=== PATIENT | female | born 1945 | race Caucasian/White ===

== ENCOUNTER 2025-10-03 15:54 | Inpatient (IN) | payer MEDICARE, OTHER ==
[~2025-10-03] VITALS: Ht 157.5 cm; Wt 100.5 kg
--- NOTE | 2025-10-03 16:07 | ECG ---
[facility] Test Date: 2025-10-03 Test Time: 16:02:48 Pat Name: DOC RUIZ Department: ED Room: 0236 Gender: F Client Account Assistant: REINA : 1945 Requested By: TAMEKA SALEEM Order Number: [id number] Reading MD: Jeffry Roa Measurements Intervals Bryan Rate: 101 P: 77 NM: 156 QRS: -26 QRSD: 85 T: 58 QT: 339 QTc: 440 Interpretive Statements Sinus tachycardia Probable left atrial enlargement Borderline left axis deviation Baseline wander in lead(s) V6 Electronically Signed On 10-07-2025 19:14:11 PST by Jeffry Roa Please click the below link to view image of tracing.
[2025-10-03 16:30] VITALS: PULSE 97; RESP 20; O2SAT 92
[2025-10-03] MEDS: LACTATED RINGER'S 1,500 ML IV ONE (17:10)
[2025-10-03] MEDS: ACETAMINOPHEN 500 MG TAB or CAP PO ONE (17:10)
[2025-10-03] MEDS: CEFEPIME 1GM/50ML 50 ML IV ONE (17:10)
--- NOTE | 2025-10-03 17:37 | ED.PDOC ---
HPI (NEURO) HPI Comments 80 y/o F, presents to the ED for CC of generalized weakness. Patient states, she has been experiencing symptoms of generalized weakness with associated malaise x1week. Patient reports, weakness has worsened since commencement of symptoms, now being unable to ambulate and having frequent falls. Patient further relays, symptoms of poor appetite. At this time patient c/o bilateral leg pain. Patient denies fever, urinary symptoms, nausea, vomiting, or head injury. Chief Complaint: General Weakness Time Seen by MD: 17:20 Mode of Arrival: EMS Severity: Moderate Headache Severity: None Timing: Weeks Duration: Since onset Prehospital treatment: None Weakness Location: Generalized Circumstances: Spontaneous Symptoms: Weakness Before: Normal During: Awake After: Normal Mentation History of: None Modifying factors: Nothing Associated Signs and Symptoms: Weakness Past Medical History PAST MEDICAL HISTORY: Denies Surgical History: Denies all surgeries BOARD WORKER History: Denies all BOARD WORKER Hx Family History Family History: Unknown Social History Smoker: Non-Smoker Alcohol: Denies ETOH Use Drugs: Denies Drug Use Lives In: Home Constitutional: reports: fever, malaise, weakness; denies: chills, diaphoresis, fatigue, sweats, others EENTM: denies: blurred vision, double vision, ear bleeding, ear discharge, ear drainage, ear pain, ear ringing, eye pain, eye redness, hearing loss, mouth pain, mouth swelling, nasal discharge, nose bleeding, nose congestion, nose pain, photophobia, tearing, throat pain, throat swelling, voice changes, others Respiratory: denies: cough, hemoptysis, orthopnea, SOB at rest, shortness of breath, SOB with excertion, stridor, wheezing, others Cardiovascular: denies: chest pain, dizzy spells, diaphoresis, Dyspnea on exertion, edema, irregular heart beat, left arm pain, lightheadedness, palpitations, PND, syncope, others Gastrointestinal: denies: abdomen distended, abdominal pain, blood streaked bowels, constipated, diarrhea, dysphagia, difficulty swallowing, hematemesis, melena, nausea, poor appetite, poor fluid intake, rectal bleeding, rectal pain, vomiting, others Genitourinary: denies: abnormal vagina bleeding, burning, dyspareunia, dysuria, flank pain, frequency, hematuria, incontinence, pain, , vagina dis charge, urgency, others Neurological: denies: dizziness, fainting, headache, left sided numbness, left sided weakness, numbness, paresthesia, pre-existing deficit, right sided numbness, right sided weakness, seizure, speech problems, tingling, tremors, weakness, others Musculoskeletal: denies: back pain, gout, joint pain, joint swelling, muscle pain, muscle stiffness, neck pain, others Integumetry: denies: bruises, change in color, change in hair/nails, dryness, laceration, lesions, lumps, rash, wounds, others Allergic/Immunocompromised: denies: Difficulty Healing, Frequent Infections, Hives, Itching, others Hematologic/Lymphatic: denies: anemia, blood clots, easy bleeding, easy bruising, swollen glands, others Endocrine: denies: excessive hunger, excessive sweating, excessive thirst, excessive urination, flushing, intolerance to cold, intolerance to heat, unexplained weight gain, unexplained weight loss, others Psychiatric: denies: anxiety, bipolar disorder, depression, hopeless, panic disorder, schizophrenia, sleepless, suicidal, others All Other Systems: Reviewed and Negative Physical Exam General Appearance: No Apparent Distress, Normal, Other (febrile) HEENT: Normal ENT Inspection, Pharynx Normal Neck: Full Range of Motion, Non-Tender, Normal, Normal Inspection Respiratory: Chest Non-Tender, Lungs Clear, No Accessory Muscle Use, No Respiratory Distress, Normal Breath Sounds Cardiovascular: No Edema, No Murmur, No Gallop, Normal Peripheral Pulses, Tachycardia Breast Exam: Deferred Gastrointestinal: No Organomegaly, Non Tender, No Pulsatile Mass, Normal Bowel Sounds, Soft Genitalia: Deferred Pelvic: Deferred Rectal: Deferred Extremities: No calf tenderness, Normal capillary refill, Normal inspection, Normal range of motion, Non-tender, No pedal edema Musculoskeletal : Apperance: Normal Neurologic: Alert, pulp piler II-XII nml as Tested, No Motor Deficits, Normal Affect, Normal Mood, No Sensory Deficits Cerebellar Function: Normal Reflexes: Normal Skin: Dry, Normal Color, Warm Lymphatic: No Adenopathy Was a procedure done? Was a procedure done?: No Differential Diagnosis (SZ) General Weakness: Anemia, Dehydration, Electrolyte imbalance, Hypoglycemia, Hypotension X-Ray, Labs, Meds, VS Vital Signs Date Time Temp Pulse Resp B/P (MAP) Pulse Ox O2 Delivery O2 Flow Rate FiO2 10/03/25 17:10 100.7 10/03/25 16:30 97 20 92 Nasal Cannula* 1 24 10/03/25 16:30 100.7 93 20 124/76 (92) 95 100.7 10/03/25 16:13 100.7 100 19 156/80 99 100.7 10/03/25 16:02 101 Lab Test 10/03/25 16:58 10/03/25 16:31 Range/Units White Blood Count 9.3 4.4-10.8 10^3/uL Red Blood Count 4.50 4.0-5.20 10^6/uL Hemoglobin 13.8 12.2-16.2 g/dL Hematocrit 41.9 36.0-46.0 % Mean Corpuscular Volume 93.1 80.0-100.0 fL Mean Corpuscular Hemoglobin 30.7 28.0-32.0 pg Mean Corpuscular Hemoglobin Concent 32.9 32.0-36.0 g/dL Red Cell Distribution Width 14.4 H 11.8-14.3 % Platelet Count 266 140-450 10^3/uL Mean Platelet Volume 8.5 6.9-10.8 fL Neutrophils (%) (Auto) 89.4 H 37.0-80.0 % Lymphocytes (%) (Auto) 3.6 L 10.0-50.0 % Monocytes (%) (Auto) 6.5 0.0-12.0 % Eosinophils (%) (Auto) 0.0 0.0-7.0 % Basophils (%) (Auto) 0.5 0.0-2.0 % Neutrophils # (Auto) 8.3 1.6-8.6 10 ^3/uL Lymphocytes # (Auto) 0.3 L 0.4-5.4 10 ^3/uL Monocytes # (Auto) 0.6 0-1.3 10 ^3/uL Eosinophils # (Auto) 0 0-0.8 10 ^3/uL Basophils # (Auto) 0.1 0-0.2 10 ^3/uL Nucleated Red Blood Cells 0.1 % Prothrombin Time 11.7 9.3-11.8 sec Prothrombin Time INR 1.12 0.9-1.15 Activated Partial Thromboplast Time 29.6 24.5-34.5 SEC Sodium Level 135 L 136-145 mmol/L Potassium Level 4.7 3.5-5.1 mmol/L Chloride Level 100 98-107 mmol/L Carbon Dioxide Level 26 20-31 mmol/L Anion Gap 9 5-15 Blood Urea Nitrogen 26 H 9-23 mg/dL Creatinine 1.69 H 0.550-1.02 mg/dL Glomerular Filtration Rate Calc 31 >90 mL/min BUN/Creatinine Ratio 15.4 10.0-20.0 Serum Glucose 181 H 74-106 mg/dL Lactic Acid Level 1.1 0.4-2.0 mmol/L Calcium Level 8.9 8.7-10.4 mg/dL Total Bilirubin 0.3 0.2-1.0 mg/dL Aspartate Amino Transferase (AST) 39 13-40 U/L Alanine Aminotransferase (ALT) 24 7-40 U/L Alkaline Phosphatase 151 H 46-116 U/L Total Protein 7.3 5.7-8.2 g/dL Albumin 4.2 3.2-4.8 g/dL POC Glucose 194 H 70-106 mg/dl Current Medications Medications (Trade) Dose Ordered Sig/Elaine Route Start Time Stop Time Status Last Admin Acetaminophen (Tylenol Tablet Or Capsule) 1,000 mg ONCE ONCE PO 10/03/25 16:45 10/03/25 16:46 DC 10/03/25 17:10 Lactated Ringer's 1,500 ml @ 1,500 mls/hr ONCE ONCE IV 10/03/25 16:45 10/03/25 17:44 DC 10/03/25 17:10 Vancomycin HCl 250 ml @ 250 mls/hr ONCE ONCE IV 10/03/25 16:45 10/03/25 17:44 DC 10/03/25 18:10 Cefepime HCl 50 ml @ 12.5 mls/hr ONCE ONCE IV 10/03/25 16:45 10/03/25 20:44 10/03/25 17:[address] [address] Ph: [phone] DIAGNOSTIC IMAGING Diagnostic Imaging Report : [id number] Signed PATIENT: DOC RUIZ ACCT: [id number] UNIT: [id number] : 1945 LOC: ER ROOM / BED: / AGE / SEX: 80 / F ADM STATUS: REG ER SERVICE 1640 ORDERING PHYSICIAN: TAMEKA TORRES MD PROCEDURE(s): CXRP - CHEST PORTABLE REASON: weakness ORDER NUMBER(s): [id number], ACCESSION NUMBER(s): [id number] INDICATION: weakness TECHNIQUE: Frontal view of the chest. COMPARISON: None FINDINGS/IMPRESSION: Soft tissue density is seen at the right medial lung apex, CT is suggested in further evaluation. The lungs are otherwise clear. Unremarkable cardiomediastinal silhouette. No pleural effusion or pneumothorax. No acute osseous abnormality. ATED BY: LUZ MARINA MCCLELLAND MD DICTATED DATE/TIME: 10/03/251750 SIGNED BY: LUZ MARINA MCCLELLAND MD SIGNED DATE/TIME: 10/03/251750 CC: Time of 1ST Reevaluation: 17:50 Reevaluation 1ST: Unchanged Patient Education/Counseling: Diagnosis, Treatment Family Education/Counseling: No Family Present Departure 1 Departure Time of Disposition: 18:55 (Patient presenting with suspected sepsis. We will empirically cover patient antibiotics and fluids in the patient for further workup) Impression: Primary Impression: Suspected sepsis Additional Impression: Generalized weakness Disposition: ADMITTED INPATIENT Admit to: Med Surg Condition: Guarded Critical Care Note Critical Care Time?: Yes Critical care comment: Suspected sepsis Authorized and Performed by: Tameka Torres MD Total critical care time: Approximately 38 minutes Due to a high probability of clinically significant, life threatening deterioration, the patient required my highest level of preparedness to intervene emergently and I personally spent this critical care time directly and personally managing the patient. This critical care time included obtaining a history; examining the patient; pulse oximetry; ordering and review of studies; arranging urgent treatment with development of a management plan; evaluation of patient's response to treatment; frequent reassessment; and, discussions with other providers. This critical care time was performed to assess and manage the high probability of imminent, life-threatening deterioration that could result in multi-organ failure. It was exclusive of separately billable procedures and treating other patients and teaching time. Please see my other sections and the rest of the note for further information on patient assessment and treatment. Stability Stability form required: No Heart Score Heart Score: Heart Score Response (Comments) Value History N/A 0 EKG N/A 0 Age N/A 0 Risk Factors N/A 0 Troponin N/A 0 Total 0 I personally scribed for TAMEKA TORRES MD ([email or web address]) on 10/03/25 at 17:37. Electronically submitted by Elvi Harris ([email or web address]). I personally scribed for TAMEKA TORRES MD ([email or web address]) on 10/03/25 at 17:59. Electronically submitted by Elvi Harris ([email or web address]). TAMEKA TORRES MD Oct 03, 2025 17:37
--- NOTE | 2025-10-03 17:53 | DVH ---
INDICATION: weakness TECHNIQUE: Frontal view of the chest. COMPARISON: None FINDINGS/IMPRESSION: Soft tissue density is seen at the right medial lung apex, CT is suggested in further evaluation. The lungs are otherwise clear. Unremarkable cardiomediastinal silhouette. No pleural effusion or pneumothorax. No acute osseous abnormality.
[2025-10-03 18:02] LABS: Hematocrit 41.9 % (36.0-46.0); Hemoglobin 13.8 g/dL (12.2-16.2); Mean Corpuscular Hemoglobin 30.7 pg (28.0-32.0); Mean Corpuscular Volume 93.1 fL (80.0-100.0); Nucleated Red Blood Cells % 0.1 %
[2025-10-03 18:06] LABS: Alanine Aminotransferase 24 U/L (7-40); Albumin 4.2 g/dL (3.2-4.8); Anion Gap 9 (5-15); BUN/Creatinine Ratio 15.4 (10.0-20.0); Calcium 8.9 mg/dL (8.7-10.4); Carbon Dioxide 26 mmol/L (20-31); Chloride 100 mmol/L (98-107); Potassium 4.7 mmol/L (3.5-5.1); Total Protein 7.3 g/dL (5.7-8.2)
[2025-10-03 18:07] LABS: Bilirubin, Total 0.3 mg/dL (0.2-1.0)
[2025-10-03] MEDS: VANCOMYCIN 1GM/250ML KIT 250 ML IV ONE (18:10)
[2025-10-03 18:15] LABS: INR 1.12 (0.9-1.15); Partial Thromboplastin Time 29.6 SEC (24.5-34.5); Prothrombin Time 11.7 sec (9.3-11.8)
[2025-10-03 18:31] LABS: Alkaline Phosphatase 151 U/L (46-116); Blood Urea Nitrogen 26 mg/dL (9-23); Glucose 181 mg/dL (74-106); Sodium 135 mmol/L (136-145)
--- NOTE | 2025-10-03 19:47 | DVH ---
EXAM: CT CHEST WITHOUT CONTRAST History: better evaluate xray findings Comparison Study: XY CHEST PORTABLE on DOS: 10/03/25 TECHNIQUE: Multidetector CT of the chest was performed. Imaging was performed without IV contrast. Axial, coronal, and sagittal multiplanar reformats were obtained from the axial data set by the technologist. Radiation Dose : CTDI vol 19.4 mGy, DLP 687.5 mGy*cm. Findings: Evaluation is degraded by respiratory motion. Neck: Incompletely assessed enlarged heterogeneous thyroid goiter with calcification measuring up to 5.8 x 5.7 cm with mass effect upon the airway. Lungs: Left basilar atelectasis/ scarring. Pleura: Unremarkable Heart/Great vessels: No cardiomegaly or pericardial effusion. The aorta is unremarkable. Mediastinum: Unremarkable. Soft tissues/Bones: Thoracic dish. Upper abdomen: Prior cholecystectomy. Impression: 1. Incompletely assessed enlarged thyroid goiter accounts for the abnormality seen on chest radiograph. A nonemergent ultrasound is suggested in further assessment. 2. No acute intrathoracic abnormality.
[2025-10-03] MEDS ORDERED: ACETAMINOPHEN 325 MG TAB PO PRN (20:45)
[2025-10-03] MEDS ORDERED: DEXTROSE (50%) 50ML SYRG IV PRN (20:45)
[2025-10-03] MEDS ORDERED: ONDANSETRON HCL 4 MG/2 ML VIAL IV PRN (20:45)
[2025-10-03] MEDS: SODIUM CHLORIDE 0.9% 1,000 ML IV ONE (20:56)
[2025-10-03] MEDS: IPRATROPIUM BROM 0.5 MG/2.5ML INH SOL NEB ONE (21:23)
[2025-10-03] MEDS: InsuLIN REG 1unit/0.01ml Soln (100units/ml) SC SCH (22:00)
[2025-10-03 22:23] LABS: Urine Amorphous Crystal FEW /hpf (None Seen); Urine Protein, UAD 1+ (Negative)
[2025-10-03] MEDS: ACCU-CHEK COMFORT CURVE STRIP VI SCH (22:28)
[2025-10-04] VITALS (7 sets, daily range): BP systolic 129–140; BP diastolic 69–83; PULSE 83–90; RESP 16–20; TEMP 97.8–99.1; O2SAT 92–98
--- NOTE | 2025-10-04 00:27 | DVHHP2 ---
Admitting Diagnosis: Generalized weakness, frequent falls History of Present Illness History Source: Patient Exam Limitations: No limitations HPI Mrs. Kaylee Kramer is a 80 year old female with a history of HTN, DM type 2 , high cholesterol, CKD stage III, Brain aneurysm with stent placement, who presents with a chief complaint of generalized weakness. Patient states, she has been experiencing symptoms of generalized weakness with associated malaise x1week. Patient reports, weakness has worsened since commencement of symptoms, now being unable to ambulate and having frequent falls despite using walker at home. Patient further relays, symptoms of poor appetite, sore throat, headaches, fevers. Patient denies chest pain, urinary symptoms, nausea, vomiting, or head injury, dyspnea. Patient admitted for further evaluation. Past Medical History Cardiac: HTN, Other (high cholesterol) Pulmonary: No pertinent Hx Central Nervous System: No pertinent Hx GI: No pertinent Hx Hemotology/Oncology: No pertinent Hx Hepatobiliary: No pertinent Hx Psychiatric: No pertinent Hx Musculoskeletal: No pertinent Hx Rheumotologic: No pertinent Hx Infectious Disease: No peritnent Hx ENT: No pertinent Hx Renal/: CKD (stage III) Endocrine: NIDDM Dermatology: No pertinent Hx Smoker: No Hx (Negative) Alocohol: None Drugs: None Lives with: Other (son) Domestic Violence: Neg Review of Systems Constitutional: Weakness (generalized weakness, frequent falls) Ears, Nose, & Throat: Throat pain Eyes: No symptom reported Pulmonary/Respiratory: Cough (non productive) Cardiovascular: No symptom reported Gastrointestinal: No symptom reported Genitourinary: No symptom reported Musculoskeletal: No symptom reported Skin: No symptom reported Psychiatric: No symptom reported Endocrine: No symptom reported Hemotologic/Lymphatic: No symptom reported H&P Exam Vital Signs Vital Signs Date Time Temp Pulse Resp B/P (MAP) Pulse Ox O2 Delivery O2 Flow Rate FiO2 10/03/25 22:00 99.5 91 20 140/86 (104) 95 99.5 10/03/25 21:23 Nasal Cannula* 2 28 General Appeara: Well developed, Well nourished, Normal Appearance Head Exam: Normal inspection Neck Exam: Normal inspection, Non-tender, Normal alignment Eye Exam: bilateral eye Normal inspection, bilateral eye PERRL, bilateral eye EOMI Ear Exam: bilateral ear Auricle normal Nasal Exam: Normal inspection Mouth: Normal Inspection Pulmonary/Respiratory: Normal inspection, Normal breath sounds, Chest non- tender, Rhonci Cardiovascular/Chest: Normal inspection, Regular rate, Normal Rhythm Peripheral Pulses: 2+ dorsalis pedis (R), 2+ dorsalis pedis (L), 2+ Radial (R), 2+ Radial (L) Abdominal Exam: Normal bowel sounds, Soft Legs: bilateral leg non-tender, bilateral leg normal inspection, bilateral leg normal range of motion CLAIMS ASSISTANT Exam: Normal hearing, Normal speech, PERRL Neuro/Mental St: Alert, Oriented Eye contact/ Speech: Cooperative, Good eye contact, Normal speech Thoughts/Psych: Normal thought pattern Skin Exam: Normal inspection, Normal color, Warm/dry SEPSIS Sepsis Screen Date sepsis recognized/suspect: Oct 03, 2025 Time Sepsis recognized/suspect: 1629 Recent Procedure: No On Antibiotic Therapy: No Respiratory Rate >20: No Heart Rate >90: No Temp<36 C (96.8 F) or >38.3 C: No SBP <90 or MAP <65 mmHG: No New Acute Mental Status Change: No Is the patient on CPAP, BIPAP,: No Physician Orders Chest Portable (10/03/25 16:40) Accucheck (10/03/25 16:40) Notify Md If Map <65 Or Bp<90 (10/03/25 16:40) If Map<65 Start Vasopressor (10/03/25 16:40) Sepsis Reassesment After Fluid (10/03/25 17:40) Chest Without Contrast (10/03/25 18:51) Basic Metabolic Panel (10/04/25 05:00) Basic Metabolic Panel (10/05/25 05:00) Complete Blood Count (10/04/25 05:00) Complete Blood Count (10/05/25 05:00) Pt Request For Service (10/03/25 19:40) [facility] Inhouse Covid19 (10/03/25 20:42) Admit (10/03/25 20:43) * [place] Torch Operator Consult (10/03/25 ) Consistent Carb(Ccho)Diabetes (10/04/25 Breakfast) Full Code (10/03/25 20:43) Stat Ekg For Chest Pain (10/03/25 20:43) Notify Md Of Changes From Base (10/03/25 20:43) Light Bulb Replacer For 24 Hours (10/03/25 20:43) Emergency Dysrhythmia Protocol (10/03/25 20:43) Rhythm Strips Once Every Shift (10/03/25 20:43) Oxygen By Nasal Cannula (10/03/25 20:43) Ondansetron Hcl (Zofran) (10/03/25 20:45) Acetaminophen Tablet (Tylenol Tablet) (10/03/25 20:45) Sodium Chloride 0.9% (10/03/25 20:45) Glucose Blood (Accu-Chek Comfort Curve T (10/03/25 22:00) Insulin R (Human) (Insulin R) (10/03/25 22:00) Dextrose 50% Syringe (10/03/25 20:45) Fall Risk Precautions In Place QSHIFT (10/03/25 20:43) Ceftriaxone 1gm/50ml (Rocephin) (10/04/25 10:00) Famotidine Tablet (Pepcid Tablet) (10/04/25 10:00) Vital Signs Date Time Temp Pulse Resp B/P (MAP) Pulse Ox O2 Delivery O2 Flow Rate FiO2 10/03/25 22:00 99.5 91 20 140/86 (104) 95 99.5 10/03/25 21:23 20 97 Nasal Cannula* 2 28 10/03/25 21:01 99.5 82 16 121/79 (93) 94 99.5 10/03/25 20:00 81 10/03/25 20:00 99.5 82 20 121/79 (93) 95 99.5 10/03/25 18:20 99.5 10/03/25 18:00 99.5 93 20 101/43 (62) 95 99.5 10/03/25 17:10 100.7 10/03/25 16:30 97 20 92 Nasal Cannula* 1 24 10/03/25 16:30 100.7 93 20 124/76 (92) 95 100.7 Laboratory Tests Test 10/03/25 16:58 Lactic Acid Level 1.1 mmol/L (0.4-2.0) White Blood Count 9.3 10^3/uL (4.4-10.8) Medications Medications Dose Ordered Sig/Elaine Route Start Time Stop Time Status Last Admin Dose Admin Acetaminophen 1,000 mg ONCE ONCE PO 10/03/25 16:45 10/03/25 16:46 DC 10/03/25 17:10 1,000 MG Cefepime HCl 50 ml @ 12.5 mls/hr ONCE ONCE IV 10/03/25 16:45 10/03/25 20:44 DC 10/03/25 17:10 12.5 MLS/HR Diagnostic Test (Pha) 1 strip ACHS 10/03/25 22:00 10/03/25 22:28 1 STRIP Insulin Human Regular ACHS SC 10/03/25 22:00 10/03/25 22:00 3 UNITS Ipratropium [place] 0.5 mg ONCE ONCE NEB 10/03/25 21:00 10/03/25 21:01 DC 10/03/25 21:23 0.5 MG Lactated Ringer's 1,500 ml @ 1,500 mls/hr ONCE ONCE IV 10/03/25 16:45 10/03/25 17:44 DC 10/03/25 17:10 1,500 MLS/HR Sodium Chloride 1,000 ml @ 75 mls/hr [id number] ONCE IV 10/03/25 20:45 10/04/25 10:04 10/03/25 20:56 75 MLS/HR Vancomycin HCl 250 ml @ 250 mls/hr ONCE ONCE IV 10/03/25 16:45 10/03/25 17:44 DC 10/03/25 18:10 250 MLS/HR Labs/Xrays Labs Test 10/03/25 22:27 10/03/25 22:10 10/03/25 21:30 10/03/25 20:12 Range/Units POC Glucose 184 H 70-106 mg/dl Urine Color Light-yellow Yellow Urine Clarity Clear Clear Urine pH 5.5 5.0-9.0 Urine Specific [place] 1.012 1.001-1.035 Urine Protein 1+ H Negative Urine Ketones Trace Negative Urine Blood 1+ H Negative /uL Urine Nitrite Negative Negative Urine Bilirubin Negative Negative Urine Urobilinogen Normal Negative mg/dL Urine Leukocyte Esterase Trace Negative /uL Urine RBC 1 0 - 4 /hpf Urine Microscopic WBC 4 0-5 /HPF Urine Squamous Epithelial Cells Few <5 /hpf Urine Amorphous Crystals Few None Seen /hpf Urine Bacteria Few H None Seen /hpf Urine Glucose Trace Normal mg/dL Influenza Type A Antigen Negative Negative Influenza Type B Antigen Negative Negative D-Dimer, Quantitative 1.24 H 0.0-0.49 mg/L FEU Test 10/03/25 16:58 Range/Units White Blood Count 9.3 4.4-10.8 10^3/uL Red Blood Count 4.50 4.0-5.20 10^6/uL Hemoglobin 13.8 12.2-16.2 g/dL Hematocrit 41.9 36.0-46.0 % Mean Corpuscular Volume 93.1 80.0-100.0 fL Mean Corpuscular Hemoglobin 30.7 28.0-32.0 pg Mean Corpuscular Hemoglobin Concent 32.9 32.0-36.0 g/dL Red Cell Distribution Width 14.4 H 11.8-14.3 % Platelet Count 266 140-450 10^3/uL Mean Platelet Volume 8.5 6.9-10.8 fL Neutrophils (%) (Auto) 89.4 H 37.0-80.0 % Lymphocytes (%) (Auto) 3.6 L 10.0-50.0 % Monocytes (%) (Auto) 6.5 0.0-12.0 % Eosinophils (%) (Auto) 0.0 0.0-7.0 % Basophils (%) (Auto) 0.5 0.0-2.0 % Neutrophils # (Auto) 8.3 1.6-8.6 10 ^3/uL Lymphocytes # (Auto) 0.3 L 0.4-5.4 10 ^3/uL Monocytes # (Auto) 0.6 0-1.3 10 ^3/uL Eosinophils # (Auto) 0 0-0.8 10 ^3/uL Basophils # (Auto) 0.1 0-0.2 10 ^3/uL Nucleated Red Blood Cells 0.1 % Prothrombin Time 11.7 9.3-11.8 sec Prothrombin Time INR 1.12 0.9-1.15 Activated Partial Thromboplast Time 29.6 24.5-34.5 SEC Sodium Level 135 L 136-145 mmol/L Potassium Level 4.7 3.5-5.1 mmol/L Chloride Level 100 98-107 mmol/L Carbon Dioxide Level 26 20-31 mmol/L Anion Gap 9 5-15 Blood Urea Nitrogen 26 H 9-23 mg/dL Creatinine 1.69 H 0.550-1.02 mg/dL Glomerular Filtration Rate Calc 31 >90 mL/min BUN/Creatinine Ratio 15.4 10.0-20.0 Serum Glucose 181 H 74-106 mg/dL Lactic Acid Level 1.1 0.4-2.0 mmol/L Calcium Level 8.9 8.7-10.4 mg/dL Total Bilirubin 0.3 0.2-1.0 mg/dL Aspartate Amino Transferase (AST) 39 13-40 U/L Alanine Aminotransferase (ALT) 24 7-40 U/L Alkaline Phosphatase 151 H 46-116 U/L Total Protein 7.3 5.7-8.2 g/dL Albumin 4.2 3.2-4.8 g/dL Assessment/Plan Problem List: (1) Generalized weakness (2) Falls frequently Plan This is a 80 year old female with a known history of HTN, DM type 2 , high cholesterol, CKD stage III, Brain aneurysm with stent placement, who presents to the hospital with generalized weakness, frequent falls, sore throat, non productive cough. 1. Generalized weakness 2. Frequent Falls 3. Malaise 4. Hypertension 5. DM type 2 6. CKD stage III 7. Elevated D dimer Plan Admit Med Surg Social Service consult PT evaluation BLE venous US r/o DVT Fall precautions Influenza and COVID PCR follow results IV antibiotic prophylactic Glucose monitoring ac & hs coverage with insulin ss Discussed all above with patient who verbalizes agreement and understanding of care plan. All questions were answered. Discussed with supervising MD. Plan discussed with: Patient, Other Code Visit Code Visit Total Time (mins): 45 ARNOLD JARRELL Oct 04, 2025 00:27 ELIF GUILLORY MD Oct 05, 2025 16:18
--- NOTE | 2025-10-04 01:14 | DVH ---
Bilateral lower extremity venous duplex Clinical History: r/o dvt Comparison: None Technique: Duplex Doppler evaluation of the deep venous systems of both lower extremities from the common femoral veins to the popliteal veins including color Doppler and spectral/pulsed waveform analysis was performed. Findings: RIGHT SIDE: The common femoral vein demonstrates appropriate compressibility and waveform variability. There is compressibility/patency of the great saphenous vein at the proximal thigh. The femoral vein demonstrates appropriate compressibility and waveform variability. The deep femoral vein demonstrates appropriate compressibility and waveform variability. The popliteal vein demonstrates appropriate compressibility and waveform variability. There is normal compressibility at the tibioperoneal trunk. LEFT SIDE: The common femoral vein demonstrates appropriate compressibility and waveform variability. There is compressibility/patency of the great saphenous vein at the proximal thigh. The femoral vein demonstrates appropriate compressibility and waveform variability. The deep femoral vein demonstrates appropriate compressibility and waveform variability. The popliteal vein demonstrates appropriate compressibility and waveform variability. There is normal compressibility at the tibioperoneal trunk. Impression: 1. No right or left femoropopliteal venous thrombosis.
[2025-10-04 03:44] LABS: Anion Gap 11 (5-15); Carbon Dioxide 25 mmol/L (20-31); Chloride 101 mmol/L (98-107); Potassium 4.9 mmol/L (3.5-5.1); Sodium 137 mmol/L (136-145)
[2025-10-04 03:50] LABS: BUN/Creatinine Ratio 15.4 (10.0-20.0); Blood Urea Nitrogen 23 mg/dL (9-23)
[2025-10-04 04:00] LABS: Calcium 8.7 mg/dL (8.7-10.4); Glucose 150 mg/dL (74-106)
[2025-10-04 04:13] LABS: Hematocrit 42.1 % (36.0-46.0); Hemoglobin 13.8 g/dL (12.2-16.2); Mean Corpuscular Hemoglobin 30.4 pg (28.0-32.0); Mean Corpuscular Volume 93.1 fL (80.0-100.0); Nucleated Red Blood Cells % 0.1 %
[2025-10-04 08:33] LABS: COVID19 ANTIGEN SOFIA FIA POSITIVE (NEGATIVE)
[2025-10-04] MEDS: FAMOTIDINE 20 MG TAB PO SCH (10:03)
[2025-10-05] VITALS (8 sets, daily range): BP systolic 118–164; BP diastolic 76–96; PULSE 74–95; RESP 16–18; TEMP 97.2–98.7; O2SAT 93–96
[2025-10-05 05:41] LABS: Hematocrit 40.3 % (36.0-46.0); Hemoglobin 13.1 g/dL (12.2-16.2); Mean Corpuscular Hemoglobin 30.1 pg (28.0-32.0); Mean Corpuscular Volume 92.5 fL (80.0-100.0); Nucleated Red Blood Cells % 0.0 %
[2025-10-05 05:52] LABS: Chloride 102 mmol/L (98-107); Potassium 4.0 mmol/L (3.5-5.1)
[2025-10-05 05:53] LABS: Anion Gap 12 (5-15); Carbon Dioxide 22 mmol/L (20-31)
[2025-10-05 05:58] LABS: BUN/Creatinine Ratio 15.1 (10.0-20.0); Blood Urea Nitrogen 23 mg/dL (9-23)
[2025-10-05 06:00] LABS: Calcium 8.7 mg/dL (8.7-10.4); Glucose 131 mg/dL (74-106); Sodium 136 mmol/L (136-145)
--- NOTE | 2025-10-05 16:21 | DVHPN2 ---
Subjective Overnight events noted. Patient was found to have COVID-19 positive, patient complaining of cough with the phlegm and sore throat. Changes from previous H/P or p: No Changes Objective Vitals Vital Signs Date Time Temp Pulse Resp B/P (MAP) Pulse Ox O2 Delivery O2 Flow Rate FiO2 10/05/25 13:30 97.9 85 18 123/79 (94) 96 97.9 10/05/25 08:00 Room Air* 0 21 Intake/Output Intake and Output 10/05/25 07:00 Intake Total 850 ml Output Total 800 ml Balance 50 ml Intake Oral 800 ml IV Total 50 ml Output Urine Total 800 ml # Voids 6 # Bowel Movements 3 Exam HEENT pupils are reactive Neck is supple CV is S1-S2 regular rate and rhythm Diminished breath sounds bases GI positive bowel sound Extremity no edema [employer] no motor deficit Medications Current Medications Medications Dose Ordered Sig/Elaine Route Start Time Stop Time Status Last Admin Dose Admin Ondansetron HCl 4 mg Q6HPRN PRN IV 10/03/25 20:45 Acetaminophen 650 mg Q6HPRN PRN PO 10/03/25 20:45 Famotidine 20 mg Q48H PO 10/04/25 10:00 10/04/25 10:03 20 MG Diagnostic Test (Pha) 1 strip ACHS 10/03/25 22:00 10/05/25 11:30 1 STRIP Insulin Human Regular ACHS SC 10/03/25 22:00 10/05/25 12:23 3 UNITS Dextrose 50 ml UD PRN IV 10/03/25 20:45 Ceftriaxone Sodium 50 ml @ 100 mls/hr DAILY IV 10/04/25 10:00 10/05/25 09:54 100 MLS/HR Laboratory Results Laboratory Tests 10/05/25 05:10 Chemistry Test 10/05/25 05:10 Calcium Level 8.7 mg/dL (8.7-10.4) Urinalysis Test 10/03/25 22:10 Urine Color Light-yellow (Yellow) Urine Clarity Clear (Clear) Urine pH 5.5 (5.0-9.0) Urine Specific [place] 1.012 (1.001-1.035) Urine Protein 1+ (Negative) H Urine Ketones Trace (Negative) Urine Blood 1+ /uL (Negative) H Urine Nitrite Negative (Negative) Urine Bilirubin Negative (Negative) Urine Urobilinogen Normal mg/dL (Negative) Urine Leukocyte Esterase Trace /uL (Negative) Urine RBC 1 /hpf (0 - 4) Urine Microscopic WBC 4 /HPF (0-5) Urine Squamous Epithelial Cells Few /hpf (<5) Urine Amorphous Crystals Few /hpf (None Seen) Urine Bacteria Few /hpf (None Seen) H Urine Glucose Trace mg/dL (Normal) Microbiology Microbiology Date/Time Source Procedure Growth Status 10/03/25 18:10 Blood Blood Culture - Preliminary NO GROWTH AFTER 24 HOURS OF INCUBATION. Resulted Assessment/Plan Assessment/Plan 80-year-old female with a known history of hypertension, diabetes mellitus type 2, dyslipidemia, morbid obesity classIII, CKD stage 3, history of brain aneurysm presented to the hospital with the frequent falls sore throat productive cough found to have 1. Cough with a sore throat with a productive phlegm with a positive COVID-19 2. Frequent falls 3. Hypertension 4. Diabetes mellitus type 2 5. CKD stage 3 6. Elevated D-dimer rule out PE -COVID isolation, Rocephin and doxycycline, dexamethasone -Robitussin plain, follow up V/Q scan plan of care discussed with the patient who understand and agreeable to plan Plan discussed with: Patient My Orders Orders - ELIF GUILLORY MD Procedure Category Date Status Time Guaifenesin Plain PHA 10/05/25 Logged Liquid (Robitussin Kalani 16:30 Doxycycline PHA 10/05/25 Logged 100mg/100ml 16:30 *Consult CONS 10/05/25 Transmitted 16:16 Dexamethasone PHA 10/05/25 Logged Injection (Decadron 16:30 Date of Service: Oct 05, 2025 Billing Provider: ELIF GUILLORY MD Common Visit Codes: NOT BILLABLE ELIF GUILLORY MD Oct 05, 2025 16:21
[2025-10-05] MEDS: DOXYCYCLINE 100MG/100ML 100 ML IV SCH (17:40)
[2025-10-06 00:53] VITALS: BP 159/91; PULSE 87; RESP 17; TEMP 98.1; O2SAT 93
[2025-10-06 05:21] VITALS: BP 157/86; PULSE 78; RESP 18; TEMP 97.5; O2SAT 96
[2025-10-06 08:31] VITALS: BP 127/84; PULSE 86; RESP 16; TEMP 97.2; O2SAT 94
[2025-10-06 12:43] VITALS: BP 158/85; PULSE 79; RESP 15; TEMP 97.4; O2SAT 94
--- NOTE | 2025-10-06 15:42 | DVHPN2 ---
Subjective Overnight events noted. Patient was found to have COVID-19 positive, patient complaining of cough with the phlegm and sore throat. Changes from previous H/P or p: No Changes Objective Vitals Vital Signs Date Time Temp Pulse Resp B/P (MAP) Pulse Ox O2 Delivery O2 Flow Rate FiO2 10/06/25 12:43 97.4 79 15 158/85 (109) 94 97.4 10/06/25 08:00 Room Air* 0 21 Intake/Output Intake and Output 10/06/25 07:00 Intake Total 800 ml Balance 800 ml Intake Oral 500 ml IV Total 300 ml # Voids 6 # Bowel Movements 5 Exam HEENT pupils are reactive Neck is supple CV is S1-S2 regular rate and rhythm Diminished breath sounds bases GI positive bowel sound Extremity no edema LAP [employer]ER no motor deficit Medications Current Medications Medications Dose Ordered Sig/Elaine Route Start Time Stop Time Status Last Admin Dose Admin Ondansetron HCl 4 mg Q6HPRN PRN IV 10/03/25 20:45 Acetaminophen 650 mg Q6HPRN PRN PO 10/03/25 20:45 Famotidine 20 mg Q48H PO 10/04/25 10:00 10/06/25 09:31 20 MG Diagnostic Test (Pha) 1 strip ACHS 10/03/25 22:00 10/06/25 11:54 1 STRIP Insulin Human Regular ACHS SC 10/03/25 22:00 10/06/25 12:00 4 UNITS Dextrose 50 ml UD PRN IV 10/03/25 20:45 Ceftriaxone Sodium 50 ml @ 100 mls/hr DAILY IV 10/04/25 10:00 10/06/25 09:31 100 MLS/HR Guaifenesin 200 mg Q4HP PRN PO 10/05/25 16:30 10/05/25 22:08 200 MG Doxycycline Hyclate 100 ml @ 50 mls/hr Q12H IV 10/05/25 16:30 10/06/25 04:43 50 MLS/HR Dexamethasone Sodium Phosphate 6 mg DAILY IV 10/05/25 16:30 10/06/25 09:31 6 MG Laboratory Results Laboratory Tests 10/05/25 05:10 Urinalysis Test 10/03/25 22:10 Urine Color Light-yellow (Yellow) Urine Clarity Clear (Clear) Urine pH 5.5 (5.0-9.0) Urine Specific [place] 1.012 (1.001-1.035) Urine Protein 1+ (Negative) H Urine Ketones Trace (Negative) Urine Blood 1+ /uL (Negative) H Urine Nitrite Negative (Negative) Urine Bilirubin Negative (Negative) Urine Urobilinogen Normal mg/dL (Negative) Urine Leukocyte Esterase Trace /uL (Negative) Urine RBC 1 /hpf (0 - 4) Urine Microscopic WBC 4 /HPF (0-5) Urine Squamous Epithelial Cells Few /hpf (<5) Urine Amorphous Crystals Few /hpf (None Seen) Urine Bacteria Few /hpf (None Seen) H Urine Glucose Trace mg/dL (Normal) Microbiology Microbiology Date/Time Source Procedure Growth Status 10/03/25 18:10 Blood Blood Culture - Preliminary NO GROWTH AFTER 48 HOURS OF INCUBATION. Resulted Assessment/Plan Assessment/Plan 80-year-old female with a known history of hypertension, diabetes mellitus type 2, dyslipidemia, morbid obesity classIII, CKD stage 3, history of brain aneurysm presented to the hospital with the frequent falls sore throat productive cough found to have 1. Cough with a sore throat with a productive phlegm with a positive COVID-19 2. Frequent falls 3. Hypertension 4. Diabetes mellitus type 2 5. CKD stage 3 6. Elevated D-dimer rule out PE -COVID isolation, Rocephin and doxycycline, dexamethasone -Robitussin plain, follow up V/Q scan plan of care discussed with the patient who understand and agreeable to plan Plan discussed with: Patient My Orders Orders - ELIF GUILLORY MD Procedure Category Date Status Time Guaifenesin Plain PHA 10/05/25 In Process Liquid (Robitussin Kalani 16:30 Doxycycline PHA 10/05/25 In Process 100mg/100ml 16:30 *Consult CONS 10/05/25 Transmitted 16:16 Dexamethasone PHA 10/05/25 In Process Injection (Decadron 16:30 Date of Service: Oct 06, 2025 Billing Provider: ELIF GUILLORY MD Common Visit Codes: NOT BILLABLE ELIF GUILLORY MD Oct 06, 2025 15:42
[2025-10-06 16:53] VITALS: BP 145/86; PULSE 80; RESP 17; TEMP 97; O2SAT 93
[2025-10-06 21:00] VITALS: BP 143/89; PULSE 80; RESP 18; TEMP 97.5; O2SAT 95
--- NOTE | 2025-10-06 23:13 | DVHINCON2 ---
Date of service: Oct 06, 2025 Referring Physician CAROLINA Desai Reason for Consultation COVID-19 infection History of Present Illness A 80 year old woman with past medical history of hypertension, DM type 2, high cholesterol, CKD stage III, and brain aneurysm with stent placement, who presented to ED on 10/03/25 with a chief complaint of generalized weakness. Patient reported symptoms of generalized weakness with associated malaise x1week. Weakness has worsened to the point of being unable to ambulate and having frequent falls despite using walker at home. Patient additionally complained of poor appetite, sore throat, headaches, fevers. Denied chest pain, GI/ symptoms or other acute concerns. Patient was admitted for further care. Pulmonary consultation is requested for evaluation and management due to positive COVID-19 testing. Review of Systems: 14-point review of systems negative unless otherwise noted above. Past Medical History: Hypertension, DM type 2, high cholesterol, CKD stage III, and brain aneurysm with stent placement Past Surgical History: Stent placement for brain aneurysm Medications: Reviewed. Allergies: No known drug allergies. Family History: No family history of premature CAD. No family history of lung disorders. Social History: Nonsmoker. No alcohol or illicit drug use. Allergies: Coded Allergies: NO KNOWN ALLERGIES (Unverified , 10/03/25) Vital Signs Vital Signs Date Time Temp Pulse Resp B/P (MAP) Pulse Ox O2 Delivery O2 Flow Rate FiO2 10/06/25 21:00 97.5 80 18 143/89 (107) 95 97.5 10/06/25 20:00 Room Air* 0 21 Physical Exam Gen.: Patient lying in bed in no apparent distress. Breathing on room air. Head: Normocephalic, atraumatic. Eyes: EOMI/PERRLA. Ears: Normal hearing. Normal anatomy. Neck/trachea: Trachea midline, supple. Nose: Normal external anatomy. Mouth: Moist mucous membranes. Chest: Decreased air entry bilaterally. No wheezing or rhonchi. Cardiovascular: Positive S1, positive S2. Regular rate and rhythm. Abdomen: Positive bowel sounds in all 4 quadrants. Soft, non-tender, non- distended. : Deferred. Rectal: Deferred. Skin: Warm, dry. Intact. Extremities: 2+ radial pulses bilaterally. No lower extremity edema. Neuro: Awake, alert, oriented x3. No gross motor or sensory deficits. Cranial nerves II through XII intact. Gait not assessed. Labs/Diagnostic Data Labs Test 10/06/25 22:27 10/05/25 05:10 10/03/25 22:10 10/03/25 21:30 Range/Units POC Glucose 270 H 70-106 mg/dl White Blood Count 8.1 4.4-10.8 10^3/uL Red Blood Count 4.36 4.0-5.20 10^6/uL Hemoglobin 13.1 12.2-16.2 g/dL Hematocrit 40.3 36.0-46.0 % Mean Corpuscular Volume 92.5 80.0-100.0 fL Mean Corpuscular Hemoglobin 30.1 28.0-32.0 pg Mean Corpuscular Hemoglobin Concent 32.5 32.0-36.0 g/dL Red Cell Distribution Width 14.4 H 11.8-14.3 % Platelet Count 224 140-450 10^3/uL Mean Platelet Volume 8.6 6.9-10.8 fL Neutrophils (%) (Auto) 81.9 H 37.0-80.0 % Lymphocytes (%) (Auto) 7.5 L 10.0-50.0 % Monocytes (%) (Auto) 10.4 0.0-12.0 % Eosinophils (%) (Auto) 0.0 0.0-7.0 % Basophils (%) (Auto) 0.2 0.0-2.0 % Neutrophils # (Auto) 6.6 1.6-8.6 10 ^3/uL Lymphocytes # (Auto) 0.6 0.4-5.4 10 ^3/uL Monocytes # (Auto) 0.8 0-1.3 10 ^3/uL Eosinophils # (Auto) 0 0-0.8 10 ^3/uL Basophils # (Auto) 0 0-0.2 10 ^3/uL Nucleated Red Blood Cells 0.0 % Sodium Level 136 136-145 mmol/L Potassium Level 4.0 3.5-5.1 mmol/L Chloride Level 102 98-107 mmol/L Carbon Dioxide Level 22 20-31 mmol/L Anion Gap 12 5-15 Blood Urea Nitrogen 23 9-23 mg/dL Creatinine 1.52 H 0.550-1.02 mg/dL Glomerular Filtration Rate Calc 35 >90 mL/min BUN/Creatinine Ratio 15.1 10.0-20.0 Serum Glucose 131 H 74-106 mg/dL Calcium Level 8.7 8.7-10.4 mg/dL Urine Color Light-yellow Yellow Urine Clarity Clear Clear Urine pH 5.5 5.0-9.0 Urine Specific [place] 1.012 1.001-1.035 Urine Protein 1+ H Negative Urine Ketones Trace Negative Urine Blood 1+ H Negative /uL Urine Nitrite Negative Negative Urine Bilirubin Negative Negative Urine Urobilinogen Normal Negative mg/dL Urine Leukocyte Esterase Trace Negative /uL Urine RBC 1 0 - 4 /hpf Urine Microscopic WBC 4 0-5 /HPF Urine Squamous Epithelial Cells Few <5 /hpf Urine Amorphous Crystals Few None Seen /hpf Urine Bacteria Few H None Seen /hpf Urine Glucose Trace Normal mg/dL Influenza Type A Antigen Negative Negative Influenza Type B Antigen Negative Negative Test 10/03/25 20:12 10/03/25 16:58 10/03/25 05:30 Range/Units D-Dimer, Quantitative 1.24 H 0.0-0.49 mg/L FEU Prothrombin Time 11.7 9.3-11.8 sec Prothrombin Time INR 1.12 0.9-1.15 Activated Partial Thromboplast Time 29.6 24.5-34.5 SEC Lactic Acid Level 1.1 0.4-2.0 mmol/L Total Bilirubin 0.3 0.2-1.0 mg/dL Aspartate Amino Transferase (AST) 39 13-40 U/L Alanine Aminotransferase (ALT) 24 7-40 U/L Alkaline Phosphatase 151 H 46-116 U/L Total Protein 7.3 5.7-8.2 g/dL Albumin 4.2 3.2-4.8 g/dL SARS-CoV-2 Antigen (Rapid) Positive NEGATIVE Microbiology Date/Time Source Procedure Growth Status 10/03/25 18:10 Blood Blood Culture - Preliminary NO GROWTH AFTER 72 HOURS OF INCUBATION. Resulted Assessment Impression: COVID-19 infection Chronic kidney disease Hyperlipidemia Goiter Morbid obesity Plan: On room air Supplemental oxygen PRN Titrate to keep O2 sats above 92%. CT chest reviewed, shows no acute opacities. Venous Doppler ultrasound of bilateral lower extremities negative for DVT. On Decadron Continue bronchodilators. Albuterol HFA PRN Continue antibiotics Follow up Nephrology recommendations Monitor renal function. Monitor electrolytes. Supplement as necessary. Monitor ins and outs. Recommend diet and lifestyle modifications for weight reduction Obesity complicates all care GI/DVT prophylaxis. Prognosis: Poor given patient's multiple co-morbidities. Rest of plan per hospitalist and other consultants. Thank you, CAROLINA Desai, for allowing me to participate in this patient's care. Further recommendations will depend on the patient's clinical course. Please do not hesitate to contact me if you have any questions or concerns. This medical document was created using an electronic medical record system with [employer] dictation system. Although these documentations are being carefully reviewed, there may still be some phonetic and typographical changes. The errors are purely typographical, due to imperfection on the software program, and do not reflect any compromise in the patient's medical care. Plan discussed with: Patient, Other (CHRISTY Martines/) CHADD [facility] Oct 06, 2025 23:13
[2025-10-07] VITALS (8 sets, daily range): BP systolic 130–161; BP diastolic 80–90; PULSE 71–89; RESP 16–19; TEMP 96.8–99; O2SAT 94–98
[2025-10-07] MEDS ORDERED: DOXY100C79 PO (15:05)
[2025-10-07] MEDS ORDERED: METH4PAK PO (15:05)
[2025-10-07] MEDS ORDERED: GUA200LQ PO (15:05)
--- NOTE | 2025-10-07 15:09 | DVHDS2 ---
Discharge Summary Date of Admission Oct 03, 2025 at 20:43 Date of Discharge: Oct 07, 2025 Labs/Diagnostic Data: Laboratory Results Test 10/07/25 11:23 10/05/25 05:10 10/03/25 22:10 10/03/25 21:30 POC Glucose 217 mg/dl (70-106) White Blood Count 8.1 10^3/uL (4.4-10.8) Red Blood Count 4.36 10^6/uL (4.0-5.20) Hemoglobin 13.1 g/dL (12.2-16.2) Hematocrit 40.3 % (36.0-46.0) Mean Corpuscular Volume 92.5 fL (80.0-100.0) Mean Corpuscular Hemoglobin 30.1 pg (28.0-32.0) Mean Corpuscular Hemoglobin Concent 32.5 g/dL (32.0-36.0) Red Cell Distribution Width 14.4 % (11.8-14.3) Platelet Count 224 10^3/uL (140-450) Mean Platelet Volume 8.6 fL (6.9-10.8) Neutrophils (%) (Auto) 81.9 % (37.0-80.0) Lymphocytes (%) (Auto) 7.5 % (10.0-50.0) Monocytes (%) (Auto) 10.4 % (0.0-12.0) Eosinophils (%) (Auto) 0.0 % (0.0-7.0) Basophils (%) (Auto) 0.2 % (0.0-2.0) Neutrophils # (Auto) 6.6 10 ^3/uL (1.6-8.6) Lymphocytes # (Auto) 0.6 10 ^3/uL (0.4-5.4) Monocytes # (Auto) 0.8 10 ^3/uL (0-1.3) Eosinophils # (Auto) 0 10 ^3/uL (0-0.8) Basophils # (Auto) 0 10 ^3/uL (0-0.2) Nucleated Red Blood Cells 0.0 % Sodium Level 136 mmol/L (136-145) Potassium Level 4.0 mmol/L (3.5-5.1) Chloride Level 102 mmol/L (98-107) Carbon Dioxide Level 22 mmol/L (20-31) Anion Gap 12 (5-15) Blood Urea Nitrogen 23 mg/dL (9-23) Creatinine 1.52 mg/dL (0.550-1.02) Glomerular Filtration Rate Calc 35 mL/min (>90) BUN/Creatinine Ratio 15.1 (10.0-20.0) Serum Glucose 131 mg/dL (74-106) Calcium Level 8.7 mg/dL (8.7-10.4) Urine Color Light-yellow (Yellow) Urine Clarity Clear (Clear) Urine pH 5.5 (5.0-9.0) Urine Specific [place] 1.012 (1.001-1.035) Urine Protein 1+ (Negative) Urine Ketones Trace (Negative) Urine Blood 1+ /uL (Negative) Urine Nitrite Negative (Negative) Urine Bilirubin Negative (Negative) Urine Urobilinogen Normal mg/dL (Negative) Urine Leukocyte Esterase Trace /uL (Negative) Urine RBC 1 /hpf (0 - 4) Urine Microscopic WBC 4 /HPF (0-5) Urine Squamous Epithelial Cells Few /hpf (<5) Urine Amorphous Crystals Few /hpf (None Seen) Urine Bacteria Few /hpf (None Seen) Urine Glucose Trace mg/dL (Normal) Influenza Type A Antigen Negative (Negative) Influenza Type B Antigen Negative (Negative) Test 10/03/25 20:12 10/03/25 16:58 10/03/25 05:30 D-Dimer, Quantitative 1.24 mg/L FEU (0.0-0.49) Prothrombin Time 11.7 sec (9.3-11.8) Prothrombin Time INR 1.12 (0.9-1.15) Activated Partial Thromboplast Time 29.6 SEC (24.5-34.5) Lactic Acid Level 1.1 mmol/L (0.4-2.0) Total Bilirubin 0.3 mg/dL (0.2-1.0) Aspartate Amino Transferase (AST) 39 U/L (13-40) Alanine Aminotransferase (ALT) 24 U/L (7-40) Alkaline Phosphatase 151 U/L (46-116) Total Protein 7.3 g/dL (5.7-8.2) Albumin 4.2 g/dL (3.2-4.8) SARS-CoV-2 Antigen (Rapid) Positive (NEGATIVE) Other Laboratory Tests 10/05/25 05:10 Brief Hx & Hospital Course: 80-year-old female with a known history of hypertension, diabetes mellitus type 2, dyslipidemia, morbid obesity classIII, CKD stage 3, history of brain aneurysm presented to the hospital with the frequent falls sore throat productive cough found to have COVID-19 pneumonia. Patient was treated with the IV antibiotics, patient has remained on room air. Patient was also given IV dexamethasone. Patient's is being discharged under stable condition. Condition at Discharge: Stable Final Diagnosis/Problems List 80-year-old female with a known history of hypertension, diabetes mellitus type 2, dyslipidemia, morbid obesity classIII, CKD stage 3, history of brain aneurysm presented to the hospital with the frequent falls sore throat productive cough found to have 1. Cough with a sore throat with a productive phlegm with a positive COVID-19 2. Frequent falls 3. Hypertension 4. Diabetes mellitus type 2 5. CKD stage 3 6. Elevated D-dimer rule out PE -COVID isolation, Rocephin and dox Discharge Disposition: Home with Health Services SNF Discharge Will this Physician continue t: No Discharge Instruct/Medications Diet: Cardiac 2g Na,low cholest Activity: [id number] Follow Up/Referral: Please follow up with the PCP in 1-2 weeks Medications: Medication as prescribed. New Medications: Doxycycline (Monohydrate) (Doxycycline) 100 Mg Cap 100 MG PO BID for 7 Days, #14 CAP Methylprednisolone (Medrol Dosepak) 4 Mg Thom 4 MG PO UD, #21 TAB UAD Guaifenesin (Guaifenesin) 100 Mg/5 Ml Syp 200 MG PO Q4HP PRN for 7 Days, #7 SYP Scheduled Doxycycline (Monohydrate) (Doxycycline), 100 MG PO BID Methylprednisolone (Medrol Dosepak), 4 MG PO UD Scheduled PRN Guaifenesin (Guaifenesin), 200 MG PO Q4HP PRN Discharge Statement: "Patient was advised to return to the ER or call 911 if any headaches, dizziness, shortness of breath, chest pain, abdominal pain, bleeding, fevers, or worsening of medical condition. Patient was counseled about treatment plan, medications, possible side effects, patientverbalized understanding. All questions were answered to the best of my ability. This discharge took greater then 30 minutes in planning, reviewing documentation, counseling the patient, and discussing with other team members." ASSESSMENT ASSESSMENT Assessment 80-year-old female with a known history of hypertension, diabetes mellitus type 2, dyslipidemia, morbid obesity classIII, CKD stage 3, history of brain aneurysm presented to the hospital with the frequent falls sore throat productive cough found to have 1. Cough with a sore throat with a productive phlegm with a positive COVID-19 2. Frequent falls 3. Hypertension 4. Diabetes mellitus type 2 5. CKD stage 3 6. Elevated D-dimer rule out PE -COVID isolation, Rocephin and dox Date of Service: Oct 07, 2025 Billing Provider: ELIF GUILLORY MD Common Visit Codes: NOT BILLABLE ELIF GUILLORY MD Oct 07, 2025 15:09
--- NOTE | 2025-10-07 22:09 | DVHPN2 ---
Progress Note - Dictate Date Seen: Oct 07, 2025 Medical Necessity Reason Pt with a Central, PICC or Fol: No Subjective Patient seen and examined at bedside. Breathing comfortably on room air. Overnight events reviewed. vital signs Vital Sign Date Time Temp Pulse Resp B/P (MAP) Pulse Ox O2 Delivery O2 Flow Rate FiO2 10/07/25 21:00 99.0 79 17 148/89 (108) 95 99.0 10/07/25 08:30 Room Air* 0 21 Total Intake and Output 10/06/25 10/06/25 10/07/25 15:00 23:00 07:00 Intake Total 50 ml 700 ml 650 ml Balance 50 ml 700 ml 650 ml medications Current Medications Medications Dose Ordered Sig/Elaine Route Start Time Stop Time Status Last Admin Dose Admin Ondansetron HCl 4 mg Q6HPRN PRN IV 10/03/25 20:45 Acetaminophen 650 mg Q6HPRN PRN PO 10/03/25 20:45 Famotidine 20 mg Q48H PO 10/04/25 10:00 10/06/25 09:31 20 MG Diagnostic Test (Pha) 1 strip ACHS 10/03/25 22:00 10/07/25 21:42 1 STRIP Insulin Human Regular ACHS SC 10/03/25 22:00 10/07/25 17:02 8 UNITS Dextrose 50 ml UD PRN IV 10/03/25 20:45 Ceftriaxone Sodium 50 ml @ 100 mls/hr DAILY IV 10/04/25 10:00 10/07/25 09:38 100 MLS/HR Guaifenesin 200 mg Q4HP PRN PO 10/05/25 16:30 10/06/25 17:56 200 MG Doxycycline Hyclate 100 ml @ 50 mls/hr Q12H IV 10/05/25 16:30 10/07/25 17:02 50 MLS/HR Dexamethasone Sodium Phosphate 6 mg DAILY IV 10/05/25 16:30 10/07/25 09:38 6 MG objective Gen.: Patient lying in bed in no apparent distress. Breathing on room air. Head: Normocephalic, atraumatic. Eyes: EOMI/PERRLA. Ears: Normal hearing. Normal anatomy. Neck/trachea: Trachea midline, supple. Nose: Normal external anatomy. Mouth: Moist mucous membranes. Chest: Decreased air entry bilaterally. No wheezing or rhonchi. Cardiovascular: Positive S1, positive S2. Regular rate and rhythm. Abdomen: Positive bowel sounds in all 4 quadrants. Soft, non-tender, non- distended. : Deferred. Rectal: Deferred. Skin: Warm, dry. Intact. Extremities: 2+ radial pulses bilaterally. No lower extremity edema. Neuro: Awake, alert, oriented x3. No gross motor or sensory deficits. Cranial nerves II through XII intact. Gait not assessed. laboratory and microbiology Laboratory Tests 10/05/25 05:10 Test 10/05/25 05:10 Range/Units Serum Glucose 131 H 74-106 mg/dL Assessment/Plan Impression: COVID-19 infection Chronic kidney disease Hyperlipidemia Goiter Morbid obesity Events: Breathing on room air Supplemental oxygen PRN No acute overnight events. Continue Decadron Continue antibiotics Continue bronchodilators - Albuterol HFA PRN Incentive spirometry Patient is stable for discharge from the pulmonary standpoint. Labs and imaging reviewed. Rest of plan as noted below. Plan: On room air Supplemental oxygen PRN Titrate to keep O2 sats above 92%. CT chest reviewed, shows no acute opacities. Venous Doppler ultrasound of bilateral lower extremities negative for DVT. On Decadron Continue bronchodilators. Albuterol HFA PRN Continue antibiotics Follow up Nephrology recommendations Monitor renal function. Monitor electrolytes. Supplement as necessary. Monitor ins and outs. Recommend diet and lifestyle modifications for weight reduction Obesity complicates all care GI/DVT prophylaxis. Prognosis: Poor given patient's multiple co-morbidities. Rest of plan per hospitalist and other consultants. Thank you, CAROLINA Desai, for allowing me to participate in this patient's care. Further recommendations will depend on the patient's clinical course. Please do not hesitate to contact me if you have any questions or concerns. This medical document was created using an electronic medical record system with [employer] dictation system. Although these documentations are being carefully reviewed, there may still be some phonetic and typographical changes. The errors are purely typographical, due to imperfection on the software program, and do not reflect any compromise in the patient's medical care. Plan discussed with: Patient, Other (CHADD [facility] Oct 07, 2025 22:09
[2025-10-08 01:00] VITALS: BP 170/94; PULSE 72; RESP 18; TEMP 98.8; O2SAT 96
[2025-10-08] MEDS: hydrALAZINE HCL 20 MG/ML VL IV PRN (01:20)
[2025-10-08 05:00] VITALS: BP 150/77; PULSE 82; RESP 18; TEMP 98.8; O2SAT 95
[2025-10-08 09:00] VITALS: BP 159/90; PULSE 77; RESP 20; TEMP 98.7; O2SAT 96
--- NOTE | 2025-10-08 22:42 | DVHPN2 ---
Progress Note - Dictate Date Seen: Oct 08, 2025 Medical Necessity Reason Pt with a Central, PICC or Fol: No Subjective Patient seen and examined at bedside. Breathing comfortably on room air. Overnight events reviewed. vital signs Vital Sign Date Time Temp Pulse Resp B/P (MAP) Pulse Ox O2 Delivery O2 Flow Rate FiO2 10/08/25 09:00 98.7 77 20 159/90 (113) 96 98.7 10/08/25 07:49 Room Air* 0 21 Total Intake and Output 10/07/25 10/07/25 10/08/25 15:00 23:00 07:00 Intake Total 50 ml 850 ml 840 ml Balance 50 ml 850 ml 840 ml objective Gen.: Patient lying in bed in no apparent distress. Breathing on room air. Head: Normocephalic, atraumatic. Eyes: EOMI/PERRLA. Ears: Normal hearing. Normal anatomy. Neck/trachea: Trachea midline, supple. Nose: Normal external anatomy. Mouth: Moist mucous membranes. Chest: Decreased air entry bilaterally. No wheezing or rhonchi. Cardiovascular: Positive S1, positive S2. Regular rate and rhythm. Abdomen: Positive bowel sounds in all 4 quadrants. Soft, non-tender, non- distended. : Deferred. Rectal: Deferred. Skin: Warm, dry. Intact. Extremities: 2+ radial pulses bilaterally. No lower extremity edema. Neuro: Awake, alert, oriented x3. No gross motor or sensory deficits. Cranial nerves II through XII intact. Gait not assessed. laboratory and microbiology Laboratory Tests 10/05/25 05:10 Test 10/05/25 05:10 Range/Units Serum Glucose 131 H 74-106 mg/dL Assessment/Plan Impression: COVID-19 infection Chronic kidney disease Hyperlipidemia Goiter Morbid obesity Events: Breathing on room air Supplemental oxygen PRN No acute overnight events. Continue Decadron Continue antibiotics Bronchodilators - Albuterol HFA PRN Complete abx/steroid course. Incentive spirometry Patient is stable for discharge from the pulmonary standpoint. Labs and imaging reviewed. Rest of plan as noted below. Plan: On room air Supplemental oxygen PRN Titrate to keep O2 sats above 92%. CT chest reviewed, shows no acute opacities. Venous Doppler ultrasound of bilateral lower extremities negative for DVT. On Decadron Continue bronchodilators. Albuterol HFA PRN Continue antibiotics Follow up Nephrology recommendations Monitor renal function. Monitor electrolytes. Supplement as necessary. Monitor ins and outs. Recommend diet and lifestyle modifications for weight reduction Obesity complicates all care GI/DVT prophylaxis. Prognosis: Poor given patient's multiple co-morbidities. Rest of plan per hospitalist and other consultants. Thank you, CAROLINA Desai, for allowing me to participate in this patient's care. Further recommendations will depend on the patient's clinical course. Please do not hesitate to contact me if you have any questions or concerns. This medical document was created using an electronic medical record system with [employer] dictation system. Although these documentations are being carefully reviewed, there may still be some phonetic and typographical changes. The errors are purely typographical, due to imperfection on the software program, and do not reflect any compromise in the patient's medical care. Dietary Evaluation Review Comments: Monitor PO intake, lab values, weight trend, and I/O Expected Outcomes/Goals: Intake to meet >75% estimated needs FU 3-5 days Plan discussed with: Patient, Other (RN) CHADD HANNAH [facility] Oct 08, 2025 22:42
== END 2025-10-08 12:10 | disposition home or self-care (01) | DRG 177 ==
LOC: ER 15:54 → EDBD 15:54 → OVERFLOW 20:43 → EAST 10-04 14:47
PROVIDERS: ADMIT Internal Medicine; ATTEND Internal Medicine
DX: U07.1 COVID-19 (principal); J12.82 Pneumonia due to coronavirus disease 2019; Z68.41 Body mass index [BMI] 40.0-44.9, adult; E04.9 Nontoxic goiter, unspecified; E11.22 Type 2 diabetes mellitus with diabetic chronic kidney disease; I12.9 Hypertensive chronic kidney disease with stage 1 through stage 4 chronic kidney disease, or unspecified chronic kidney disease; N18.30 Chronic kidney disease, stage 3 unspecified; E66.01 Morbid (severe) obesity due to excess calories; R29.6 Repeated falls; R79.89 Other specified abnormal findings of blood chemistry; E78.00 Pure hypercholesterolemia, unspecified; Z78.9 Other specified health status; Z79.84 Long term (current) use of oral hypoglycemic drugs; Z87.891 Personal history of nicotine dependence
CPT/HCPCS: 36415; 71045; 71250; 80048; 80053; 81001; 82962; 83605; 85025; 85379; 85610; 85730; 87040; 87426; 87804; 93005; 93970; 94640; 96365; 97116; 97163; 97530; 99291; G0378; J1100; J1815